=== PATIENT | female | born 1930 | race Hispanic/Latino ===

== ENCOUNTER 2018-09-03 10:09 | Emergency (ER) | payer MEDICARE, OTHER ==
[2018-09-03 10:14] VITALS: BMI 30.4
[2018-09-03 10:15] VITALS: TEMP 97.8; O2SAT 98
--- NOTE | 2018-09-03 11:00 | ED PDOC ---
Lower Extremity Pain/Injury Time Seen by Provider: 09/03/18 10:30 Chief Complaint (Nursing): Lower Extremity Problem/Injury Chief Complaint (Provider): Right leg pain History Per: Patient History/Exam Limitations: clinical condition Onset/Duration Of Symptoms: Days Current Symptoms Are (Timing): Still Present Additional History Per: Patient Additional Complaint(s): 88yo female, comes to ER reporting right leg pain s/p fall at home 2 weeks ago. Patient reports pain diffusely to her right leg, with swelling to her right lower extremity. Patient has been taking Tylenol with some relief. Patient is elderly, and a poor historian so HPI/ROS is limited. Patient unable to specify if she is taking blood thinners. PMD: None Past Medical History Reviewed: Historical Data, Nursing Documentation, Vital Signs Vital Signs: Last Vital Signs Temp 97.8 F 09/03/18 10:14 Pulse 71 09/03/18 10:14 Resp 16 09/03/18 10:14 BP 142/71 09/03/18 10:14 Pulse Ox 98 09/03/18 10:14 - Medical History PMH: HTN - Family History Family History: States: Unknown Family Hx - Living Arrangements Living Arrangements: With Family - Social History Current smoker - smoking cessation education provided: No Alcohol: None - Home Medications Home Medications: Ambulatory Orders Medication Instructions Recorded Acetaminophen [Tylenol 325mg tab] 2 tab PO Q4H PRN #20 tab 09/03/18 Sulfamethoxazole/Trimethoprim 1 tab PO BID #10 tab 09/03/18 [Bactrim DS 800 mg-160 mg] - Allergies Allergies/Adverse Reactions: Allergies Allergy/AdvReac Type Severity Reaction Status Date / Time Penicillins Allergy RASH Verified 09/03/18 10:55 Review of Systems Constitutional: Negative for: Fever, Chills Musculoskeletal: Positive for: Leg Pain (right) Neurological: Negative for: Weakness, Numbness, Headache Physical Exam - Reviewed Nursing Documentation Reviewed: Yes Vital Signs Reviewed: Yes - Physical Exam Appears: Positive for: Non-toxic Head Exam: Positive for: ATRAUMATIC, NORMAL INSPECTION, NORMOCEPHALIC Skin: Positive for: Normal Color Eye Exam: Positive for: EOMI, PERRL Neck: Positive for: Supple Cardiovascular/Chest: Positive for: Regular Rate, Rhythm. Negative for: Tachycardia Respiratory: Positive for: Normal Breath Sounds. Negative for: Respiratory Distress Gastrointestinal/Abdominal: Positive for: Soft Extremity: Positive for: Tenderness (diffuse tenderness to anterior right lower extremity; no hip tenderness), Pedal Edema (right lower extremity), Other (hematoma noted right lateral thigh; eccymosis noted to first 4 toes on right foot) Neurological/Psych: Positive for: Awake, Alert - ECG O2 Sat by Pulse Oximetry: 98 (RA) Pulse Ox Interpretation: Normal Medical Decision Making Medical Decision [place] female with right leg pain s/p fall Plan: -- XR Right Foot -- XR Right Femur -- US Duplex right lower extremity 1302 US Duplex FINDINGS: COMMON FEMORAL VEIN: Unremarkable SUPERFICIAL FEMORAL VEIN: Unremarkable. POPLITEAL VEIN: Unremarkable. POSTERIOR TIBIAL VEIN: Unremarkable. OTHER FINDINGS: None. IMPRESSION: No evidence of deep venous thrombosis in the right lower extremity. Pt administered Bactrim DS. Scribe Attestation: Documented by Massiel Hollingsworth acting as a scribe for Yoko Cornelius MD. Provider Attestation: All medical record entries made by the Scribe were at my direction and pe rsonally dictated by me. I have reviewed the chart and agree that the record accurately reflects my personal performance of the history, physical exam, medical decision making, and the department course for this patient. I have also personally directed, reviewed, and agree with the discharge instructions and disposition. Disposition - Clinical Impression Clinical Impression: Leg injury, Cellulitis - Disposition Referrals: Virgilio Ivan DPM [[facility]] - Virgilio Prince MD [Staff Provider] - Disposition: Routine/Home Disposition Time: 14:23 Condition: STABLE Prescriptions: Acetaminophen [Tylenol 325mg tab] 2 tab PO Q4H PRN #20 tab PRN Reason: Fever >100.4 F Sulfamethoxazole/Trimethoprim [Bactrim DS 800 mg-160 mg] 1 tab PO BID #10 tab Instructions: Taking Care of Bruises, Muscle and Bone Pain (DC), Cellulitis (Skin Infection), Adult (DC) Forms: Localize Direct (Cam[place]onian)
--- NOTE | 2018-09-03 13:06 | US ---
Date of service: 09/03/2018 PROCEDURE: Right lower extremity venous duplex Doppler. HISTORY: RLE swelling COMPARISON: None available. TECHNIQUE: Common femoral, superficial femoral, popliteal and posterior tibial veins were evaluated. Flow was assessed with color Doppler, compressibility, assessment of phasic flow and augmentation response. FINDINGS: COMMON FEMORAL VEIN: Unremarkable. SUPERFICIAL FEMORAL VEIN: Unremarkable. POPLITEAL VEIN: Unremarkable. POSTERIOR TIBIAL VEIN: Unremarkable. OTHER FINDINGS: None. IMPRESSION: No evidence of deep venous thrombosis in the right lower extremity.
[2018-09-03] MEDS ORDERED: Tmp-Smz 800 mg-160 mg DS Tab PO STA (14:20)
[2018-09-03] MEDS ORDERED: Tmp-Smz 800 mg-160 mg DS Tab ONE (14:35)
[2018-09-03 14:51] VITALS: BP 140/70; PULSE 74; RESP 18
--- NOTE | 2018-09-03 17:06 | RAD ---
Date of service: 09/03/2018 PROCEDURE: Right femur HISTORY: Lateral thigh pain, hematoma COMPARISON: No prior study available comparison TECHNIQUE: AP and lateral views of the right femur performed. FINDINGS: No evidence of acute displaced fracture nor dislocation. Right femoral head is appropriately located within the right acetabulum. The osseous structures appear intact. Multiple metallic vascular clips seen within the medial soft tissues of the thigh consistent with prior saphenous vein harvest however clinical correlation with surgical history recommended. Vascular calcifications are present. IMPRESSION: No acute fractures.
--- NOTE | 2018-09-03 17:10 | RAD ---
Date of service: 09/03/2018 PROCEDURE: Right Foot Radiographs. HISTORY: Foot pain, injury COMPARISON: None. TECHNIQUE: 3 views obtained. FINDINGS: Study is limited due to extension at the level of the MTP joints most notably involving the 2nd through 5th digits.. The study is therefore limited as a result BONES: No definitive radiographic evidence of acute displaced fracture nor dislocation so far as can be seen JOINTS: Extension deformities of the MTP joints most notably affecting the 2nd through 5th digits limiting evaluation for fracture SOFT TISSUES: There appears to be mild soft tissue swelling over the lateral malleolus. OTHER FINDINGS: None. IMPRESSION: Limited exam due to extension deformities of all the digits as detailed above. No definitive evidence of acute displaced fracture nor dislocation so far as can be seen within limitation of the exam.
== END 2018-09-03 14:40 | disposition home or self-care (01) ==
LOC: H.ER 10:09
DX: L03.115 Cellulitis of right lower limb (principal); I10 Essential (primary) hypertension; Z88.0 Allergy status to penicillin